=== PATIENT | female | born 1940 | race Caucasian/White ===

== ENCOUNTER 2017-03-17 08:32 | Inpatient (IN) | payer MEDICARE ==
[2017-03-17] VITALS (9 sets, daily range): BP systolic 95–153; BP diastolic 48–84
[~2017-03-17] VITALS: Ht 167.6 cm; Wt 70.0 kg
[~2017-03-17 08:32] MED LIST: ADALAT CC30 MG PO; ADVAIR DISK1 IN; ALBUTEROL S2.5 MG/.5 IN; ALBUTEROL2.5 MG/3 M INH; ARICEPT10 MG PO; ATENOLOL25 MG PO; ATROVENT I0.5 MG/VIA IN; AVELOX400 MG PO; AZITHROMYCIN250 MG PO; AZITHROMYCIN500 MG PO; CLONIDINE0.1 MG OR; CYCLOBENZAPR5 MG PO; DUONEB INH; FEXOFENADINE180 MG PO; FOSINOPRIL10 MG OR; FUROSEMIDE20 MG PO; GABAPENTIN300 MG PO; HYDROCO/APAP1 TA9 PO; LORTAB 10-325 M1 TAB PO; LORTAB 5/3255 MG PO; LOTENSIN HCT1 TA1 PO; LOTENSIN HCT1 TA2 PO; MOTRIN400 MG PO; NIFEDIPINE30 MG PO; NYSTATIN100000 M1 PO; PREDNISONE10 MG PO; PREDNISONE50 MG PO; PROAIR HFA INH; PULMICORT0.25 MG/2 IN; SYMBICORT1 AE1 IN; ULTRAM50 MG OR; VALIUM5 MG PO; VENTOLIN HFA IN; VICODIN1 TAB OR; XANAX0.25 MG OR; XANAX0.25 MG PO; XANAX0.5 MG PO
[2017-03-17 09:12] LABS: HEMATOCRIT 42.6 % (37.0-47.0); HEMOGLOBIN 12.4 g/dl (12.0-16.0); MEAN CELL VOLUME 103.6 fL CALC (80.0-100.0); MEAN CORPUSCULAR HGB 30.2 pG CALC (26.0-32.0); MEAN CORPUSCULAR HGB CONC 29.1 g/L CALC (32.0-36.0); NEUT# 6.47 thou/uL (2.00-7.15); RED BLOOD COUNT 4.11 mill/uL (4.20-5.60); RED CELL DISTRI WIDTH 14.1 % (11.5-15.5)
[2017-03-17 09:25] LABS: ALBUMIN 4.1 g/dL (3.2-5.0); BILIRUBIN, TOTAL 0.5 mg/dL (0.0-1.4); CALCIUM 9.5 mg/dL (8.4-10.2); CREATININE 1.6 mg/dL (0.5-1.0); POTASSIUM 4.6 mmol/l (3.5-5.1); TOTAL PROTEIN 7.4 g/dL (6.3-8.2)
[2017-03-17 09:26] LABS: INTERNATIONAL NORMALIZED RATIO 0.9 RATIO (0.7-1.3); PROTHROMBIN TIME 10.1 SECONDS (9.0-12.5)
[2017-03-17] MEDS ORDERED: GABAPENTIN100 MG PO (09:56)
[2017-03-17] MEDS ORDERED: BENADRYL 25MG C25 MG PO (09:57)
[2017-03-17] MEDS ORDERED: PRIMIDONE50 MG PO (09:57)
[2017-03-17 09:58] LABS: URINE BILIRUBIN - DIPSTICK NEGATIVE (NEGATIVE); URINE BLOOD DIPSTICK SMALL (NEGATIVE); URINE COLOR YELLOW; URINE GLUCOSE - DIPSTICK NEGATIVE (NEGATIVE); URINE KETONE NEGATIVE (NEGATIVE); URINE LEUK ESTERASE NEGATIVE (NEGATIVE); URINE NITRITE - DIPSTICK POSITIVE (Negative); URINE PH 5.5 (4.5-8.0); URINE PROTEIN - DIPSTICK TRACE mg/dL (NEG-TRACE); URINE SPECIFIC GRAVITY 1.025; URINE UROBILINOGEN - DIPSTICK 0.2 E.U./dL (0.2)
[2017-03-17] MEDS ORDERED: XANAX0.5 MG PO (09:58)
[2017-03-17] MEDS ORDERED: DALIRESP500 MCG PO (09:58)
[2017-03-17 09:59] LABS: URINE CLARITY HAZY
[2017-03-17 10:00] LABS: URINE BACTERIA MANY hpf; URINE EPITHELIAL CELLS FEW EPI/hpf (0-FEW); URINE WBC 0-2 WBC/hpf (0-5)
[2017-03-18] VITALS (10 sets, daily range): BP systolic 101–145; BP diastolic 59–70
[2017-03-18 05:35] LABS: HEMATOCRIT 31.5 % (37.0-47.0); HEMOGLOBIN 9.2 g/dl (12.0-16.0); MEAN CELL VOLUME 103.3 fL CALC (80.0-100.0); MEAN CORPUSCULAR HGB 30.2 pG CALC (26.0-32.0); MEAN CORPUSCULAR HGB CONC 29.2 g/L CALC (32.0-36.0); NEUT# 3.16 thou/uL (2.00-7.15); RED BLOOD COUNT 3.05 mill/uL (4.20-5.60); RED CELL DISTRI WIDTH 13.9 % (11.5-15.5)
[2017-03-18] MEDS ORDERED: BL VIT B-12500 MCG PO (09:23)
[2017-03-18] MEDS ORDERED: KEFLEX500 MG PO (09:24)
[2017-03-18 09:30] LABS: ALBUMIN 2.5 g/dL (3.2-5.0); ALKALINE PHOSPHATASE 106 u/l (38-126); ANION GAP 10 (6-22 (CALC)); BILIRUBIN, TOTAL 0.2 mg/dL (0.0-1.4); BUN 23 mg/dL (8-23); BUN/CREATININE RATIO 25 (12-20 (CALC)); CARBON DIOXIDE 28 mmol/l (22-30); CHLORIDE 112 mmol/l (95-108); CREATININE 0.9 mg/dL (0.5-1.0); GFR > 60 ML/MIN (>=60 (CALC)); GFR FOR AFR.AMER. > 60 ML/MIN (>=60 (CALC)); GLUCOSE 90 mg/dL (82-115); POTASSIUM 4.1 mmol/l (3.5-5.1); SGOT/AST 33 u/l (9-36); SGPT/ALT 32 u/l (11-66); SODIUM 145 mmol/l (137-146); TOTAL PROTEIN 4.8 g/dL (6.3-8.2)
[2017-03-18 09:31] LABS: CALCIUM 7.5 mg/dL (8.4-10.2)
[2017-03-19] VITALS (15 sets, daily range): BP systolic 127–192; BP diastolic 58–93
[2017-03-20] VITALS (12 sets, daily range): BP systolic 134–177; BP diastolic 70–99
[2017-03-20 05:12] LABS: HEMATOCRIT 38.9 % (37.0-47.0); HEMOGLOBIN 11.8 g/dl (12.0-16.0); IMMATURE GRANULOCYTES 0.4 % (0.0-1.0); MEAN CELL VOLUME 100.3 fL CALC (80.0-100.0); MEAN CORPUSCULAR HGB 30.4 pG CALC (26.0-32.0); MEAN CORPUSCULAR HGB CONC 30.3 g/L CALC (32.0-36.0); NEUT# 5.65 thou/uL (2.00-7.15); RED BLOOD COUNT 3.88 mill/uL (4.20-5.60); RED CELL DISTRI WIDTH 13.7 % (11.5-15.5)
[2017-03-20 05:25] LABS: ANION GAP 15 (6-22 (CALC)); BUN 19 mg/dL (8-23); BUN/CREATININE RATIO 19 (12-20 (CALC)); CARBON DIOXIDE 31 mmol/l (22-30); CHLORIDE 104 mmol/l (95-108); GFR 54 ML/MIN (>=60 (CALC)); GFR FOR AFR.AMER. > 60 ML/MIN (>=60 (CALC)); GLUCOSE 120 mg/dL (82-115); POTASSIUM 5.1 mmol/l (3.5-5.1); SODIUM 145 mmol/l (137-146)
[2017-03-20] MEDS ORDERED: CIPROFLOXACIN500 M1 PO (08:35)
[2017-03-20] MEDS ORDERED: CIPROFLOXACN500 MG PO (11:40)
== END 2017-03-20 12:25 | disposition home health service (06) | DRG 189 ==
LOC: ED 08:32 → ED-I 10:22 → ED 11:15 → ICU 11:16 → MS2 03-18 15:42 → ICU 03-19 15:00
PROVIDERS: Emergency Medicine; ADMIT Internal Medicine; ATTEND Internal Medicine
PROC: 5A09357 Assistance with Respiratory Ventilation, Less than 24 Consecutive Hours, Continuous Positive Airway Pressure (ICD-10-PCS; principal; 2017-03-17)
DX: J96.22 Acute and chronic respiratory failure with hypercapnia (principal); G93.40 Encephalopathy, unspecified; E87.8 Other disorders of electrolyte and fluid balance, not elsewhere classified; J44.1 Chronic obstructive pulmonary disease with (acute) exacerbation; D63.1 Anemia in chronic kidney disease; N39.0 Urinary tract infection, site not specified; E78.5 Hyperlipidemia, unspecified; M81.0 Age-related osteoporosis without current pathological fracture; B96.20 Unspecified Escherichia coli [E. coli] as the cause of diseases classified elsewhere; I12.9 Hypertensive chronic kidney disease with stage 1 through stage 4 chronic kidney disease, or unspecified chronic kidney disease; N18.9 Chronic kidney disease, unspecified; F45.8 Other somatoform disorders; Z87.891 Personal history of nicotine dependence